=== PATIENT | female | born 1985 | race African-American/Black ===

== ENCOUNTER 2021-07-02 17:55 | Emergency (ER) | payer BC ==
[~2021-07-02] VITALS: Ht 175.3 cm; Wt 72.6 kg
--- NOTE | 2021-07-02 19:05 | NUR ---
Patient presents to ER with c/o of vaginal itchiness and discomfort. States she had discharge but it stopped a couple days ago. Pt in no acute distress.
[2021-07-02 19:47] LABS: *BILIRUBIN,URIN NEGATIVE (NEGATIVE); *BLOOD, URINE NEGATIVE (NEGATIVE); *CLARITY,URINE SLIGHTLY CLOUDY (CLEAR); *COLOR,URINE YELLOW (YELLOW); *KETONES,URINE NEGATIVE (NEGATIVE); LEUKOCYTE ESTERASE ,URINE NEGATIVE (NEGATIVE); NITRITE, URINE NEGATIVE (NEGATIVE); UGLUCOSE NEGATIVE (NEGATIVE)
[2021-07-02 19:48] LABS: *URINE HCG, QUAL NEGATIVE (NEGATIVE)
--- NOTE | 2021-07-02 20:00 | NUR ---
Accompanied Dr. Joseph for pelvic examination.
[2021-07-02 20:01] LABS: BACTERIA,URINE FEW /HPF (NONE SEEN); MUCUS,URINE FEW /LPF (0-FEW); RBC,URINE 0-3 /HPF (0-3); SQUAMOUS EPITHELIAL CELL,UR FEW /HPF (NONE SEEN); URINE AMORPHOUS PHOSPHATES MANY /HPF; WBC,URINE 0-3 /HPF (0-3)
[2021-07-02] MEDS ORDERED: CLIN40CR VG (21:45)
[2021-07-02] MEDS ORDERED: FLUC150T PO (21:45)
--- NOTE | 2021-07-02 21:52 | NUR ---
Per Dr. Joseph, pt stable for discharge. DC instructions and rx given and reviewed with patient. Verbalized understanding. Left ER in stable condition.
== END 2021-07-02 21:52 | disposition home or self-care (01) ==
LOC: ER 17:58
DX: N76.0 Acute vaginitis (principal); B96.89 Other specified bacterial agents as the cause of diseases classified elsewhere
CPT/HCPCS: 84703; 87210; A4663